=== PATIENT | male | born 1945 | race Caucasian/White ===

== ENCOUNTER → 2019-06-02 | Outpatient (CLI) | payer MEDICARE, BC ==
--- NOTE | 2019-06-05 14:55 | FL ---
EXAMINATION TYPE: FL barium swallow DATE OF EXAM: 06/02/2019 CLINICAL HISTORY: Dysphagia TECHNIQUE: A double contrast esophagram is performed utilizing air and barium. A total of 1 minute and 34 seconds of fluoroscopic time was utilized during procedure. 39 fluoroscopic images were saved during the examination. COMPARISON: None FINDINGS: The esophagus shows normal motility and emptying into the stomach. Very small hiatal hernia is seen. No stricture is identified. Very mild gastroesophageal reflux was seen during real time per formance of this study the level of the distal third of the esophagus on supine images only. IMPRESSION: Trace amount of gastroesophageal reflux. Very small hiatal hernia is noted.
== END | disposition home or self-care (01) ==
LOC: RADUSWWP 09:39
PROVIDERS: ATTEND Internal Medicine
DX: K44.9 Diaphragmatic hernia without obstruction or gangrene (principal)
CPT/HCPCS: 74220

== ENCOUNTER 2020-05-22 14:07 | Observation (INO) | payer MEDICARE, BC ==
[2020-05-22] MEDS ORDERED: ONDANSETRON 4 MG/2 ML VIAL IVP STA (15:07)
[2020-05-22] MEDS ORDERED: SODIUM CHLORIDE 0.9% 1,000 ML IV STA (15:07)
--- NOTE | 2020-05-22 15:20 | ED ---
General Adult HPI - General Chief complaint: Nausea/Vomiting/Diarrhea Stated complaint: Vomiting Time Seen by Provider: 05/22/20 14:29 Source: patient, RN notes reviewed Mode of arrival: ambulatory Limitations: no limitations - History of Present Illness Initial comments: 74-year-old male with a past medical history of COPD, CVA, tachycardia presents to the emergency room for a chief complaint of vomiting. Patient reports that he has been unable to keep down solids or liquids for 5 days. States that when he tries to drink water he can keep it down for several minutes and then it comes back up. He is not able to keep down solid foods. Patient denies any abdominal pain. Denies fevers or chills. He denies diarrhea.Patient has no other complaints at this time including shortness of breath, chest pain, abdominal pain, headache, or visual changes. - Related Data Home Medications Medication Instructions Recorded Confirmed Aspirin EC [Ecotrin Low Dose] 81 mg PO DAILY 05/22/20 05/22/20 HYDROcodone/APAP 7.5-325MG [[place] 1 tab PO BID PRN 05/22/20 05/22/20 7.5-325] Metoprolol Succinate [Toprol XL] 25 mg PO DAILY 05/22/20 05/22/20 Allergies Allergy/AdvReac Type Severity Reaction Status Date / Time pork AdvReac Vomiting Uncoded 05/22/20 17:54 Review of Systems ROS Statement: Those systems with pertinent positive or pertinent negative responses have been documented in the HPI. ROS Other: All systems not noted in ROS Statement are negative. Past Medical History Past Medical History: Cancer, COPD, CVA/TIA, Neurologic Disorder, Osteoarthritis (OA), Prostate Disorder Additional Past Medical History / Comment(s): tachycardia History of Any Multi-Drug Resistant Organisms: None Reported Past Surgical History: Back Surgery Additional Past Surgical History / Comment(s): leg, stomach Past Anesthesia/Blood Transfusion Reactions: No Reported Reaction Past Psychological History: No Psychological Hx Reported Smoking Status: Former smoker Past Alcohol Use History: Daily, Occasional Past Drug Use History: None Reported General Exam Limitations: no limitations General appearance: alert, in no apparent distress Head exam: Present: atraumatic, normocephalic, normal inspection Eye exam: Present: normal appearance, PERRL, EOMI. Absent: scleral icterus, conjunctival injection, periorbital swelling ENT exam: Present: normal exam, mucous membranes moist Neck exam: Present: normal inspection, full ROM. Absent: tenderness, meningismus, lymphadenopathy Respiratory exam: Present: normal lung sounds bilaterally. Absent: respiratory distress, wheezes, rales, rhonchi, stridor Cardiovascular Exam: Present: regular rate, normal rhythm, normal heart sounds. Absent: bradycardia, tachycardia, irregular rhythm GI/Abdominal exam: Present: soft, normal bowel sounds. Absent: distended, tenderness (No abdominal tenderness), guarding, rebound, rigid Neurological exam: Present: alert Course Vital Signs 05/22/20 05/22/20 14:24 17:53 Temperature 97.9 F 99.1 F Pulse Rate 78 56 L Respiratory 16 18 Rate Blood Pressure 172/81 188/85 O2 Sat by Pulse 98 97 Oximetry Medical Decision Making - Medical Decision Making Vitals are stable. Patient presents with difficulty swallowing. This has been ongoing for 5 days to the point where he has been unable to keep down any solid foods. States if he tries it comes right back up. He states he is only able to keep down water only if he takes very small sips. Patient will only take very small sips of water here in the emergency room. Unable to drink water normally. Patient does not recall having something stuck in his throat. I did do labs and CBC is unremarkable. CMP does show evidence of dehydration with a BUN to creatinine ratio of 28. Started on IV fluids. She was given medications includ ing Zofran and Pepcid and is still unable to swallow. At this point patient will be admitted with GI consultation and will likely need endoscopy. It is possible patient could have esophageal foreign body versus stricture. Dr. Stacy spoke with Dr. Pedroza who accepts this admission. - Lab Data Result diagrams: 05/22/20 15:55 05/22/20 15:55 Lab Results 05/22/20 05/22/20 Range/Units 15:55 15:55 WBC 7.9 (3.8-10.6) k/uL RBC 5.30 (4.30-5.90) m/uL Hgb 16.6 (13.0-17.5) gm/dL Hct 49.1 (39.0-53.0) % MCV 92.7 D (80.0-100.0) fL MCH 31.4 (25.0-35.0) pg MCHC 33.8 (31.0-37.0) g/dL RDW 12.5 (11.5-15.5) % Plt Count 181 (150-450) k/uL Neutrophils % 78 % Lymphocytes % 13 % Monocytes % 7 % Eosinophils % 1 % Basophils % 0 % Neutrophils # 6.1 (1.3-7.7) k/uL Lymphocytes # 1.0 (1.0-4.8) k/uL Monocytes # 0.6 (0-1.0) k/uL Eosinophils # 0.1 (0-0.7) k/uL Basophils # 0.0 (0-0.2) k/uL Sodium 136 L (137-145) mmol/L Potassium 3.7 (3.5-5.1) mmol/L Chloride 101 (98-107) mmol/L Carbon Dioxide 26 (22-30) mmol/L Anion Gap 9 mmol/L BUN 23 H (9-20) mg/dL Creatinine 0.81 (0.66-1.25) mg/dL Est GFR (CKD-EPI)AfAm >90 (>60 ml/min/1.73 sqM) Est GFR (CKD-EPI)NonAf 89 (>60 ml/min/1.73 sqM) Glucose 122 H (74-99) mg/dL Calcium 10.3 H (8.4-10.2) mg/dL Total Bilirubin 1.3 (0.2-1.3) mg/dL AST 27 (17-59) U/L ALT 17 (4-49) U/L Alkaline Phosphatase 54 (38-126) U/L Total Protein 7.2 (6.3-8.2) g/dL Albumin 4.3 (3.5-5.0) g/dL Amylase 39 (30-110) U/L Lipase 71 (23-300) U/L Disposition Clinical Impression: Difficulty swallowing, Dehydration Disposition: ADMITTED IP TO THIS HOSP Condition: Good Is patient prescribed a controlled substance at d/c from ED?: No Referrals: Irma Pedroza MD [Primary Care Provider] - 1-2 days Time of Disposition: 17:43
[2020-05-22] MEDS ORDERED: FAMOTIDINE 20 MG/2 ML VIAL IV STA (16:08)
[2020-05-22 16:22] LABS: ALT 17 U/L (4-49); AST 27 U/L (17-59); African American GFR (CKD) >90 (>60 ml/min/1.73 sqM); Albumin 4.3 g/dL (3.5-5.0); Alkaline Phosphatase 54 U/L (38-126); Amylase 39 U/L (30-110); Anion Gap 9 mmol/L; Blood Urea Nitrogen 23 mg/dL (9-20); Calcium 10.3 mg/dL (8.4-10.2); Carbon Dioxide 26 mmol/L (22-30); Chloride 101 mmol/L (98-107); Glucose 122 mg/dL (74-99); Non-African American GFR(CKD) 89 (>60 ml/min/1.73 sqM); Potassium 3.7 mmol/L (3.5-5.1); Sodium 136 mmol/L (137-145); Total Bilirubin 1.3 mg/dL (0.2-1.3); Total Protein 7.2 g/dL (6.3-8.2)
[2020-05-22 16:23] LABS: Basophils % (A) 0 %; Eosinophils # (A) 0.1 k/uL (0-0.7); Eosinophils % (A) 1 %; HCT 49.1 % (39.0-53.0); HGB 16.6 gm/dL (13.0-17.5); Lymphocytes % (A) 13 %; MCH 31.4 pg (25.0-35.0); MCHC 33.8 g/dL (31.0-37.0); Mean Platelet Volume 7.7; Monocytes # (A) 0.6 k/uL (0-1.0); Monocytes % (A) 7 %; Neutrophils # (A) 6.1 k/uL (1.3-7.7); Neutrophils % (A) 78 %; Platelet Count 181 k/uL (150-450); RDW 12.5 % (11.5-15.5); WBC 7.9 k/uL (3.8-10.6)
[2020-05-22 16:32] LABS: MCV 92.7 fL (80.0-100.0)
--- NOTE | 2020-05-22 16:44 | XR ---
EXAMINATION TYPE: XR chest 2V DATE OF EXAM: 05/22/2020 COMPARISON: Chest x-ray May 12, 2014 HISTORY: Vomiting and pain for one week. TECHNIQUE: Frontal and lateral views of the chest are obtained. FINDINGS: There is no new suspicious focal air space opacity, pleural effusion, or pneumothorax seen . The cardiac silhouette size remains within normal limits. The osseous structures are intact. Kasandra gical clips epigastric region redemonstrated. Additional surgical clips left upper quadrant again see n. IMPRESSION: No acute cardiopulmonary process. No significant change from prior.
--- NOTE | 2020-05-22 16:45 | XR ---
EXAMINATION TYPE: XR KUB DATE OF EXAM: 05/22/2020 4:22 PM CLINICAL HISTORY: Vomiting for one week. TECHNIQUE: Two Upright KUB images of the abdomen are obtained. COMPARISON: None. FINDINGS: Scattered gas is seen in non-distended stomach and small bowel loops. Gas and fecal materia l is seen in non-distended colon along the periphery. Surgical clips epigastric region. Additional espitia rgical clip left upper quadrant. No pneumoperitoneum. Spurring and disc space narrowing lower lumbar spine. Gold therapy seeds in the prostate gland overlying the pubic symphysis. Moderate axial joint s pace loss in both hips IMPRESSION: Overall nonobstructive bowel gas pattern.
[2020-05-22] MEDS ORDERED: ONDANSETRON 4 MG/2 ML VIAL IVP PRN (17:38)
[2020-05-22] MEDS ORDERED: NALOXONE 0.4 MG/ML 1 ML VIAL IV PRN (17:38)
[2020-05-22] MEDS: SODIUM CHLORIDE 0.9% 1,000 ML IV SCH (17:50)
[2020-05-22 18:27] LABS: Appearance,Urine Clear (Clear); Bacteria,Urine Rare /hpf; Bilirubin,Urine Negative (Negative); Blood,Urine Negative (Negative); Color,Urine Yellow; Glucose,Urine (UA) Negative (Negative); Ketones,Urine 1+ (Negative); Leukocyte Esterase,Urine Negative (Negative); Mucus,Urine Occasional /hpf; Nitrite,Urine Negative (Negative); Protein,Urine 1+ (Negative); RBC,Urine 1 /hpf (0-5); Specific Gravity,Urine 1.025 (1.001-1.035); WBC,Urine 1 /hpf (0-5)
[2020-05-22] MEDS: PANTOPRAZOLE 40 MG/10 ML VIAL IV SCH (21:08)
[2020-05-22] MEDS ORDERED: cloNIDine HCL 0.1 MG TAB PO PRN (21:50)
[2020-05-22] MEDS ORDERED: cloNIDine HCL 0.1 MG TAB PO SCH (22:00)
[2020-05-23] MEDS: SODIUM CHLORIDE 0.9% 1,000 ML IV SCH ×3 (05:19→23:44)
[2020-05-23] MEDS ORDERED: PANTOPRAZOLE 40 MG/10 ML VIAL IV SCH (09:00)
[2020-05-23] MEDS: HYDROcodone/APAP 7.5-325MG 1 EACH TAB PO PRN ×2 (12:32→23:47)
--- NOTE | 2020-05-23 12:36 | P.HPIM ---
History of Present Illness H&P Date: 05/23/20 Chief Complaint: Nausea and vomiting. This is a 74-year-old male one of my patient with a previous medical history significant for hypertension and hypertensive cardiovascular disease, hyperlipidemia, COPD, TIA, atrial tachycardia, patient presented to the emergenc y department at [facility] because the patient was not able to keep anything down with nausea and vomiting for both solids and liquids for the past 5 days, and he was having some sort of dysphagia at the same time, patient was evaluated in the ER he was found to have slight hyponatremia and minimal prerenal azotemia, he was started on IV fluid and he was placed on clear liquid diet GI consultation for an EGD. Patient stated that he is coming down with a COVID-19 initially when he had the nausea and vomiting and he wanted to quarantine himself initiallly this is why he did not do anything about it, until yesterday when he decided to come to the ER for evaluation. Review of Systems Constitutional: Reports chronic pain, Reports fatigue, Reports weight loss, Denies anorexia, Denies chronic headaches, Denies lethargy, Denies weakness Eyes: denies blurred vision, denies bulging eye, denies decreased vision Ears, nose, mouth and throat: Reports dysphagia, Denies neck lump, Denies sore throat Cardiovascular: Denies chest pain, Denies decreased exercise tolerance, Denies dyspnea on exertion, Denies phlebitis, Denies rapid heart beat, Denies shortness of breath Respiratory: Denies congestion, Denies cough with sputum, Denies home oxygen, De nies sleep apnea, Denies snoring, Denies wheezing Gastrointestinal: Reports nausea, Reports vomiting, Denies abdominal pain, Denies bloating, Denies BRBPR, Denies change in bowel habits, Denies coffee ground emesis, Denies constipation, Denies diarrhea, Denies early satiety, Denies excessive gas, Denies heartburn, Denies hematemesis, Denies hematochezia, Denies indigestion, Denies jaundice, Denies loss of appetite, Denies melena Genitourinary: Reports nocturia, Denies dysuria Musculoskeletal: Denies myalgias Musculoskeletal: absent: ankle pain, ankle stiffness, ankle swelling, elbow pain, elbow stiffness, elbow swelling, foot pain, foot stiffness, foot swelling, hand pain, hand stiffness, hand swelling, hip pain, hip stiffness, hip swelling, knee pain, knee stiffness, knee swelling, shoulder pain, shoulder stiffness, shoulder swelling, wrist pain Integumentary: Denies pruritus, Denies rash Neurological: Denies numbness, Denies weakness Psychiatric: Denies anxiety, Denies depression Endocrine: Denies fatigue, Denies weight change Past Medical History Past Medical History: Cancer (Prostate cancer.), COPD, CVA/TIA, Hyperlipidemia, Hypertension, Neurologic Disorder, Osteoarthritis (OA), Prostate Disorder Additional Past Medical History / Comment(s): tachycardia History of Any Multi-Drug Resistant Organisms: None Reported Past Surgical History: Back Surgery Additional Past Surgical History / Comment(s): Vagotomy for peptic ulcer disease, left leg venous stripping, bilateral cataract surgery. Past Anesthesia/Blood Transfusion Reactions: No Reported Reaction Past Psychological History: No Psychological Hx Reported Smoking Status: Former smoker (Patient is well-developed a pack every day his blood for along time and he quit about 10 years ago.) Past Alcohol Use History: Daily, Occasional Past Drug Use History: None Reported - Past Family History Father Family Medical History: Coronary Artery Disease (CAD) (Father at age of 81 from CAD.) Mother Family Medical History: Coronary Artery Disease (CAD) (Mother at age of 92 from CAD.) Brother(s) Family Medical History: No Reported History (Patient has 2 brothers with osteoarthritis.) Sister(s) Family Medical History: Pulmonary Embolus (Patient had 2 sisters one of them from pulmonary embolism after knee surgery in the other one from COPD and she was a left long smoker) Daughter(s) Family Medical History: No Reported History (Patient has 2 daughters no major medical problems.) Medications and Allergies Home Medications Medication Instructions Recorded Confirmed Type Aspirin EC [Ecotrin Low Dose] 81 mg PO DAILY 05/22/20 05/22/20 History HYDROcodone/APAP 7.5-325MG [[place] 1 tab PO BID PRN 05/22/20 05/22/20 History 7.5-325] Metoprolol Succinate [Toprol XL] 25 mg PO DAILY 05/22/20 05/22/20 History Allergies Allergy/AdvReac Type Severity Reaction Status Date / Time pork AdvReac Vomiting Uncoded 05/22/20 17:54 Physical Exam Vitals: Vital Signs Temp Pulse Pulse Resp BP BP Pulse Ox 05/23/20 07:58 97.9 F 54 L 16 126/73 97 05/23/20 03:24 98.2 F 54 L 16 143/85 94 L 05/22/20 22:45 139/58 05/22/20 21:13 189/83 05/22/20 20:32 188/71 05/22/20 18:58 98.2 F 58 L 16 177/78 98 05/22/20 17:53 99.1 F 56 L 18 188/85 97 05/22/20 14:24 97.9 F 78 16 172/81 98 Intake and Output 05/22/20 05/23/20 05/23/20 22:59 06:59 14:59 Other: Weight 81.647 kg Physical examination: HEENT: Head is atraumatic, normocephalic, pupils were equal round reactive to light and recommendation, extraocular muscle movement were intact. Mucous membranes of the mouth is dry. Neck: Supple, no JVP, no carotid bruit. Chest: Decreased breath sounds at the bases, few rhonchi, no expiratory wheezes, no chest wall tenderness, no intercostal retractions. Heart: First heart sound is depressed, second heart sound is normal, there is systolic ejection murmur 2/6 located in the left sternal border. Abdomen: Soft, nontender, nondistended, positive bowel sounds. Extremities: There is no edema, no calf tenderness, dorsalis pedis +2 bilaterally. Neurologic examination: Patient is awake alert and oriented 3, cranial nerves II-12 appear grossly intact, muscle power 4 out of 5 in bilateral upper extremities and bilateral lower extremities, deep tendon he flexes were normal. Results CBC & Chem 7: 05/22/20 15:55 05/22/20 15:55 Labs: Abnormal Lab Results - Last 24 Hours (Table) 05/22/20 05/22/20 Range/Units 15:55 17:53 Sodium 136 L (137-145) mmol/L BUN 23 H (9-20) mg/dL Glucose 122 H (74-99) mg/dL Calcium 10.3 H (8.4-10.2) mg/dL Urine Protein 1+ H (Negative) Urine Ketones 1+ H (Negative) Urine Bacteria Rare H (None) /hpf Urine Mucus Occasional H (None) /hpf Thrombosis Risk Factor Assmnt - DVT/VTE Prophylaxis DVT/VTE Prophylaxis: Pharmacologic Prophylaxis ordered, Mechanical Prophylaxis ordered - Choose All That Apply Each Risk Factor Represents 2 Points: Age 61-74 years Thrombosis Risk Factor Assessment Total Risk Factor Score: 2 Thrombosis Risk Factor Assessment Level: Low Risk Assessment and Plan Assessment: Assessment and plan: 1. Dysphagia to solid and liquid with intractable nausea and vomiting. Start the patient on clear liquid diet, continue IV fluid in the form of normal saline, GI consultation for EGD in a.m. Start the patient on Protonix 40 mg IV push every 24 hours. 2. Hypertension and hypertensive cardiovascular disease. Continue patient on metoprolol ER 25 mg orally once every day. 3. Hyperlipidemia. Patient is not on statin. 4. History of TIA. Continue patient on aspirin 81 mg once every day. 5. History of COPD. Stable. 6. History of atrial tachycardia. Patient is currently on metoprolol 25 mg orally once every day. 7. History of prostate cancer. In remission. 8. Mild hyponatremia secondary to hypovolemia. Continue IV fluid normal saline 100 mL an hour to be CMP tomorrow morning. 9. Minimal prerenal azotemia. Continue IV fluid repeat CMP tomorrow morning. 10. DVT prophylaxis. Heparin 5000 units subcutaneously every 8 hours. 11. GI prophylaxis. Continue patient on Protonix 40 mg IV push every 24 hours. 12. Observation.
[2020-05-23 12:39] VITALS: BMI 25.1
--- NOTE | 2020-05-23 13:58 | CONS ---
CONSULTATION DATE OF DICTATION: May 23, 2020. REQUESTING PHYSICIAN: Dr. Pedroza. REASON FOR CONSULTATION: Nausea vomiting of 2 days duration. HISTORY OF PRESENT ILLNESS: The patient is a 74-year-old pleasant white male admitted to the hospital because of nausea, vomiting for the last 5 days duration. He initially thought he was having some discomfort in his throat area and had some dysphagia and he had some sore throat with excessive phlegm. He was concerned he had Covid and at the same time he started having some nausea, vomiting. He continued to remain on a clear liquid diet and became more concerned because of persistent symptoms and hence came to the emergency room yesterday and subsequently admitted to the hospital for further evaluation. This morning, he was started on a clear liquid diet. He was tolerating well. His symptoms are much better. He received some Protonix and antiemetics and his symptoms have resolved. He denies any abdominal pain. No further episodes of nausea, vomiting. He is requesting for a regular diet. He never had these symptoms in the past. He does have occasional gastroesophageal reflux disease and takes Pepcid as needed. He denies any recent NSAID use. No prior history of peptic ulcer disease. PAST MEDICAL HISTORY: Significant for hypertension. MEDICATIONS: At home, aspirin, metoprolol, and [place]. ALLERGIES: None. SOCIAL HISTORY: No smoking. No alcohol use. FAMILY HISTORY: Unremarkable. PAST SURGICAL HISTORY: Back surgery. REVIEW OF SYSTEMS: CARDIOPULMONARY denies any chest pain or shortness of breath. no dysuria or hematuria. MUSCULOSKELETAL unremarkable. Skin unremarkable. ENDOCRINE unremarkable. Psychiatric unremarkable. NEUROLOGY: Unremarkable. ENT/VISION: Unremarkable. CONSTITUTIONAL: No recent weight loss. No fever, chills, night sweats. PHYSICAL EXAMINATION: Blood pressure is 126/73, pulse rate 54, temperature 97.9. HEENT examination unremarkable. Conjunctivae pink. Sclerae anicteric. Oral cavity no lesions. NECK no JVD. No lymph node enlargement. CHEST was clear to auscultation. HEART: Regular rate and rhythm. ABDOMEN: Soft. Bowel sounds are positive. No organomegaly. EXTREMITIES: No pedal edema. SKIN no rashes. NEURO: He is alert and oriented x3. No focal deficits. LABS: WBC 7.9, hemoglobin 16, platelets normal. Basic metabolic panel is within normal limits. BUN slightly elevated 23, creatinine 0.80. ALT, AST, T-bilirubin, alkaline phosphatase are normal. Amylase and lipase are normal. He did have abdominal x-rays done and chest x-ray and KUB that was unremarkable. IMPRESSION: 1. Acute onset of nausea/vomiting associated with some discomfort in the throat area with sore throat for the last 5 days duration. His symptoms are resolving on a clear liquid diet, tolerating well. Currently remains on Protonix 40 mg daily as well as antiemetics with Zofran as is doing much better. 2. History of hypertension. RECOMMENDATIONS: 1. Continue with Protonix daily. 2. Zofran as needed. 3. We will advance diet as tolerated. 4. If he is able to keep his diet down with no other symptoms, he can be discharged home later today with outpatient followup as needed. Thank you for this consultation. MMELISHAL / IJN: [id number] /
[2020-05-23] MEDS: HEPARIN SODIUM,PORCINE 5,000 UNIT/ML 1 ML VIAL SQ SCH ×2 (17:03→23:44)
[2020-05-23] MEDS: PANTOPRAZOLE 40 MG/10 ML VIAL IV SCH (20:29)
[2020-05-24] MEDS: HEPARIN SODIUM,PORCINE 5,000 UNIT/ML 1 ML VIAL SQ SCH (08:29)
[2020-05-24] MEDS ORDERED: ENALAPRILAT 1.25 MG/ML 1 ML VIAL IVP PRN (08:29)
[2020-05-24] MEDS ORDERED: METOPROLOL SUCCINATE (ER) 25 MG TAB.ER.24H PO SCH (09:00)
[2020-05-24 09:07] VITALS: PULSE 60; RESP 14; TEMP 98.2
[2020-05-24] MEDS: SODIUM CHLORIDE 0.9% 1,000 ML IV SCH (09:41)
[2020-05-24 09:56] VITALS: BP 170/70
[2020-05-24] MEDS ORDERED: PROPOFOL 10 MG/ML 20 ML VIAL IV ONE (10:50)
[2020-05-24] MEDS ORDERED: IV FLUID CONTINUATION 1,000 ML IV ONE (10:53)
--- NOTE | 2020-05-24 11:12 | P.PCN ---
Date of Procedure: 05/24/20 Description of Procedure: BRIEF HISTORY: Patient is a 74-year-old male presenting with complaints of intractable nausea and vomiting as well as dysphagia. Symptoms present over the past 5 days. PROCEDURE PERFORMED: Esophagogastroduodenoscopy with biopsy. PREOPERATIVE DIAGNOSIS: Intractable nausea and vomiting, dysphagia. ESTIMATED BLOOD LOSS: Minimal. IV sedation per anesthesia. PROCEDURE: After informed consent was obtained, the patient was brought into the endoscopy unit. IV sedation was administered by Anesthesia under continuous monitoring. Initially the Olympus GIF-190 video endoscope was inserted into the mouth. Esophagus intubated without any difficulty. It was gradually advanced into the stomach and duodenum and carefully examined. The bulb and the second part of the duodenum appeared normal, with biopsies taken. The scope at this time was withdrawn to the stomach, adequately insufflated with air, and upon careful examination, mucosa of the antrum, body, cardia and the fundus appeared normal, except for some mild scattered erythema in the antrum and body suggestive of mild gastritis with biopsies taken. The scope was then withdrawn into the esophagus. The GE junction was located at 39 cm from the incisors, with a small 2 cm hiatal hernia noted. The lower esophagus was significant for LA grade B esophagitis in the distal esophagus was biopsied. The esophagus appeared normal. There were no erosions or ulcerations seen and the patient tolerated the procedure well. IMPRESSION: 1. Mild gastritis. 2. LA grade B distal esophagitis. 3. Small hiatal hernia. 4. Biopsies of the duodenum, antrum and body, and distal esophagus. RECOMMENDATIONS: The findings of this examination were discussed with the patient. Okay to resume diet. Okay to resume medications. Discharged on Protonix daily for 8 week course for treatment of distal esophagitis. Okay for discharge on otherwise medically stable.
[2020-05-24] MEDS ORDERED: PANTOPRAZOLE 40 MG TABLET PO SCH (11:15)
[2020-05-24] MEDS ORDERED: amLODIPine 5 MG TAB PO SCH (12:00)
--- NOTE | 2020-05-24 12:05 | P.DS ---
Providers Date of admission: 05/22/20 17:41 Expected date of discharge: 05/24/20 Attending physician: Irma Pedroza Consults: 05/22/20 17:39 Consult Physician Routine Consulting Provider: Justine Garcia Consult Reason/Comments: unable to swallow, vomiting Do you want consulting provider notified?: Yes Primary care physician: Irma Pedroza [place] [facility] Course: This is a 74-year-old male one of my patient with a previous medical history significant for hypertension and hypertensive cardiovascular disease, hyperlipidemia, COPD, TIA, atrial tachycardia, patient presented to the emergency department at [facility] because the patient was not able to keep anything down with nausea and vomiting for both solids and liquids for the past 5 days, and he was having some sort of dysphagia at the same time, patient was evaluated in the ER he was found to have slight hyponatremia and minimal prerenal azotemia, he was started on IV fluid and he was placed on clear liquid diet GI consultation for an EGD. Patient stated that he is coming down with a COVID-19 initially when he had the nausea and vomiting and he wanted to quarantine himself initiallly this is why he did not do anything about it, until yesterday when he decided to come to the ER for evaluation. 05/24: Patient underwent EGD today with Dr. Solis which revealed mild gastritis, LA grade B distal esophagitis, small hiatal hernia, biopsies of the duodenum antrum and body and distal esophagus were obtained. Patient was cleared to resume diet and medications. Patient to be discharged on Protonix daily for 8 week course for treatment of distal esophagitis. Patient was cleared for discharge by GI. Patient's blood pressure has been consistently high and amlodipine 5 mg daily added and prescription sent to his pharmacy. Patient will be discharged home today in stable condition with planned follow-up in the office in one week. Discharge diagnoses: 1. Dysphagia to solid and liquid with intractable nausea and vomiting secondary to distal esophagitis. 2. Hypertension and hypertensive cardiovascular disease. 3. Hyperlipidemia. 4. History of TIA. 5. History of COPD. 6. History of atrial tachycardia. 7. History of prostate cancer. 8. Mild hyponatremia secondary to hypovolemia. 9. Minimal prerenal azotemia. Discharge plan: Home Impression and plan of care have been directed as dictated by the signing physician. Rody Pretty nurse practitioner acting as scribe for signing physician. Patient Condition at Discharge: Good Plan - Discharge Summary Discharge Rx Participant: No New Discharge Prescriptions: New amLODIPine [Norvasc] 5 mg PO DAILY #30 tab Pantoprazole [Protonix] 40 mg PO AC-BRKFST #30 tablet.dr Ramirez Metoprolol Succinate [Toprol XL] 25 mg PO DAILY Aspirin EC [Ecotrin Low Dose] 81 mg PO DAILY HYDROcodone/APAP 7.5-325MG [[place] 7.5-325] 1 tab PO BID PRN PRN Reason: Pain Discharge Medication List Aspirin EC [Ecotrin Low Dose] 81 mg PO DAILY 05/22/20 [History] HYDROcodone/APAP 7.5-325MG [[place] 7.5-325] 1 tab PO BID PRN 05/22/20 [History] Metoprolol Succinate [Toprol XL] 25 mg PO DAILY 05/22/20 [History] Pantoprazole [Protonix] 40 mg PO AC-BRKFST #30 tablet. 05/24/20 [Rx] amLODIPine [Norvasc] 5 mg PO DAILY #30 tab 05/24/20 [Rx] Follow up Appointment(s)/Referral(s): Pj Solis MD [STAFF PHYSICIAN] - 1 Week Irma Pedroza MD [Primary Care Provider] - 1 Week Discharge Disposition: HOME SELF-CARE
[2020-05-24] MEDS: HYDROcodone/APAP 7.5-325MG 1 EACH TAB PO PRN (12:29)
== END 2020-05-24 13:12 | disposition home or self-care (01) ==
LOC: EC 14:07 → 1SOBS 17:41
PROVIDERS: ADMIT Internal Medicine; ATTEND Internal Medicine
DX: K22.70 Barrett's esophagus without dysplasia (principal); K29.70 Gastritis, unspecified, without bleeding; K44.9 Diaphragmatic hernia without obstruction or gangrene; K21.0 Gastro-esophageal reflux disease with esophagitis; R13.10 Dysphagia, unspecified; E87.1 Hypo-osmolality and hyponatremia; E86.0 Dehydration; E86.1 Hypovolemia; R79.89 Other specified abnormal findings of blood chemistry; I11.9 Hypertensive heart disease without heart failure; I47.1 Supraventricular tachycardia; E78.5 Hyperlipidemia, unspecified; J44.9 Chronic obstructive pulmonary disease, unspecified; M19.90 Unspecified osteoarthritis, unspecified site; Z79.82 Long term (current) use of aspirin; Z79.891 Long term (current) use of opiate analgesic; Z79.899 Other long term (current) drug therapy; Z91.018 Allergy to other foods; Z87.891 Personal history of nicotine dependence; Z86.73 Personal history of transient ischemic attack (TIA), and cerebral infarction without residual deficits; Z86.69 Personal history of other diseases of the nervous system and sense organs; Z85.46 Personal history of malignant neoplasm of prostate; Z87.11 Personal history of peptic ulcer disease; Z98.42 Cataract extraction status, left eye; Z98.41 Cataract extraction status, right eye; Z82.49 Family history of ischemic heart disease and other diseases of the circulatory system; Z81.2 Family history of tobacco abuse and dependence; Z82.61 Family history of arthritis
CPT/HCPCS: 96361 ×2; 96372 ×2; 96375 ×2; 96374; 99285; 36415; 88305; 80053; 82150; 83690; 85025; 81001; 71046; 74018; 43239; G0378 ×3; J1644 ×2; J2405; J2704; C9113 ×2

== ENCOUNTER → 2021-04-20 | Outpatient (CLI) | payer MEDICARE, BC ==
--- NOTE | 2021-04-20 14:04 | XR ---
EXAMINATION TYPE: XR lumbar spine 2 or 3V DATE OF EXAM: 04/20/2021 CLINICAL HISTORY: pain TECHNIQUE: Three views of the lumbar spine are submitted. COMPARISON: None. FINDINGS: There are 5 lumbar type vertebral bodies identified. The lumbar spine shows satisfactory alignment w ithout evidence of acute fracture or dislocation. Vertebral body heights are within normal limits. Severe degenerative disc disease L4-5 and L5-S1. Vacuum disc endplate sclerosis as well as ventral an d dorsal spondylosis. Facet joint arthropathy. The overlying soft tissue appears unremarkable. IMPRESSION: No acute fracture or dislocation is seen in the lumbar spine. ICD 10 NO FRACTURE, INITIAL EVALUATION
--- NOTE | 2021-04-20 14:07 | XR ---
EXAMINATION TYPE: XR cervical spine comp DATE OF EXAM: 04/20/2021 CLINICAL HISTORY: pain COMPARISON: NONE TECHNIQUE: Frontal, lateral, oblique, swimmers, and open mouth view of the cervical spine are obtaine d. FINDINGS: The cervical spine is visualized in its entirety from C1 thru the top of T1 level. It is s atisfactory in alignment without evidence of acute fracture or dislocation. The pre-vertebral soft t issue appears within normal limits. Mild multilevel degenerative disc space narrowing. Neural foramin al encroachment bilaterally at C4-5 and C5-6. The C1-C2 articulation is unremarkable on the open mout h view. The oblique images are within normal limits. IMPRESSION: No acute fracture or dislocation is seen in the cervical spine.ICD 10 NO FRACTURE, INITI AL EVALUATION
== END | disposition home or self-care (01) ==
LOC: RADXRMAIN 13:37
PROVIDERS: ATTEND Internal Medicine
DX: M48.02 Spinal stenosis, cervical region (principal); M51.37 Other intervertebral disc degeneration, lumbosacral region
CPT/HCPCS: 72050; 72100